=== PATIENT | male | born 1970 | race Caucasian/White ===

== ENCOUNTER 2018-07-18 13:11 | Emergency (ER) | payer OTHER ==
--- NOTE | 2018-07-18 13:25 | EDPHY ---
H & P Smoking Status: Never smoked Time Seen by Provider: 07/18/18 13:24 HPI/ROS: Chief complaint. Calf pain HPI. Patient is a 48-year-old male presents emergency department with posterior right calf pain. He travels for business and travels weekly. He does returned from a business trip. Last night he was going upstairs and pushing up the stairs 2 steps at a time. He felt that the calf muscle balled up and maybe popped. He has pain especially with ambulation and dorsiflexing his toe. Last night he used ice and elevation. He does note some bruising to the posterior calf. He has no thigh symptoms. Maybe slight shortness of breath but no chest discomfort. No cough or fever. No history of thrombophlebitis. No thigh pain ROS 10 systems were reviewed and negative with the exception of the elements mentioned in the history of present illness (Richy Casey) Past Medical/Surgical History: Hypertension, GERD (Richy Casey) Social History: , nonsmoker, no alcohol (Richy Casey) Physical Exam: General Appearance: Alert pleasant well-developed male mild distress vital signs show blood pressure 172/114 Eyes: Pupils equal and round no pallor or injection. ENT, Mouth: Mucous membranes are moist. Respiratory: There are no retractions, lungs are clear to auscultation. Cardiovascular: Regular rate and rhythm. Gastrointestinal: Abdomen is soft and nontender, no masses, bowel sounds normal. Neurological: Awake and alert, sensory and motor exams grossly normal. Skin: Warm and dry, no rashes. Musculoskeletal: Neck is supple nontender. Extremities posterior right calf pain and mild swelling. No discomfort above the knee. Achilles tendon is intact. Distal motor vascular sensitivity is intact Psychiatric: Patient is oriented X 3, there is no agitation. (Richy Casey) Constitutional: Initial Vital Signs Temperature (C) 36.9 C 07/18/18 13:16 Heart Rate 73 07/18/18 13:16 Respiratory Rate 16 07/18/18 13:16 Blood Pressure 172/114 H 07/18/18 13:16 O2 Sat (%) 97 07/18/18 13:16 O2 Delivery Mode Room Air Allergies/Adverse Reactions: No Known Allergies Allergy (Verified 07/18/18 13:17) Home Medications: Medication Instructions Recorded Advil 12/09/18 Sanjuanita Allergy 07/18/18 Ranitidine HCl 07/18/18 Singulair 07/18/18 Medical Decision Making - Diagnostics Imaging Results: Imaging Impressions Extremity Venous Study 07/18/18 13:25 Impression: 1. No evidence of deep vein thrombosis. 2. Incompletely occlusive thrombus in the great saphenous vein as described Dr. Montana was notified of these findings by telephone at 3:32 PM on 07/18/2018 ED Course/Re-evaluation: Patient remained stable. Patient and I discussed imaging study results, treatment plan including criteria for return importance of follow-up and further evaluation. He expresses understanding and agreement. Patient will use crutches for comfort (Richy Casey) Differential Diagnosis: I considered calf strain, calf muscle tear, DVT (Richy Casey) Other Provider: I took over care of this patient from Dr. Casey at 3:00 p.m.. I received report from Dr. Schulz. The ultrasound shows clot in the greater saphenous vein, no DVT. Length of the clot was not specified. Results relayed to patient. We discussed symptomatic treatment. Close follow- up recommended. (Yokasta Montana) Care Turn Over: Dr. Montana at 3:00 p.m. (Richy Casey) Departure - Departure Disposition: Home, Routine, Self-Care Clinical Impression: Superficial thrombophlebitis Condition: Good Instructions: Superficial Thrombophlebitis (ED) Additional Instructions: Use warm or cold compresses on the sore area. Elevate your leg above the level of your heart as much as possible. Ibuprofen 600 mg every 6 hr as needed for discomfort Crutches until comfortable with out but please try to remain ambulatory.. Return for worsening symptoms. Recheck in 3-4 days -- call your primary care doctor's office tomorrow morning and arrange a follow-up later this week. Referrals: Vito Dean, DO [Primary Care Provider] - 3-4 days, if not improved
[2018-07-18 15:59] VITALS: BP 175/105
== END 2018-07-18 15:55 | disposition home or self-care (01) ==
LOC: CED 13:11
DX: I80.01 Phlebitis and thrombophlebitis of superficial vessels of right lower extremity (principal); I10 Essential (primary) hypertension; K21.9 Gastro-esophageal reflux disease without esophagitis
CPT/HCPCS: 93971-PO